=== PATIENT | female | born 1965 | race Caucasian/White ===

== ENCOUNTER 2017-06-29 01:20 | Emergency (ER) | payer OTHER, BC ==
[~2017-06-29] VITALS: Ht 160 cm; Wt 93.8 kg
[~2017-06-29 01:20] MED LIST: BACTROBAN OINTM22 GM TP; CLEOCIN300 MG PO; DEXEDRINE10 MG PO; DEXEDRINE15 MG PO; DEXTROAMPHETAMI10 M1 PO; FLONASE16 G1 BOTH NARES; KEFLEX500 MG PO; MOTRIN600 MG PO; MUCUS ER600 MG PO; NAPROSYN-EC500 MG PO; NORCO 5/3251 TABLET PO; ORAL PAIN RELI9.4 GM PO; PERIDEX1 ML MM; SERTRALINE HCL50 MG PO; SUMATRIPTAN SU100 MG PO; TRAZODONE HCL50 MG PO; VICODIN,LORT1 TABLET PO
[2017-06-29 01:22] VITALS: BP 167/90
== END 2017-06-29 03:27 | disposition home or self-care (01) ==
LOC: EME 01:20
DX: S09.8XXA Other specified injuries of head, initial encounter (principal); W22.8XXA Striking against or struck by other objects, initial encounter; Y99.0 Civilian activity done for income or pay; F17.200 Nicotine dependence, unspecified, uncomplicated
CPT/HCPCS: 70450; 99281; 99283

== ENCOUNTER 2017-12-08 18:06 | Emergency (ER) | payer OTHER ==
[~2017-12-08] VITALS: Ht 157.5 cm; Wt 102.7 kg
[2017-12-08] MEDS ORDERED: NAPROXEN500 MG PO (19:40)
[2017-12-08 20:14] VITALS: BP 151/94
== END 2017-12-08 20:18 | disposition home or self-care (01) ==
LOC: EME 18:06
DX: M25.571 Pain in right ankle and joints of right foot (principal); Z88.5 Allergy status to narcotic agent
CPT/HCPCS: 73610; 99281; 99284